=== PATIENT | male | born 1940 | race Caucasian/White ===

== ENCOUNTER 2016-10-01 09:30 | Observation (INO) | payer MEDICARE ==
[~2016-10-01 09:30] MED LIST: ALL220TA PO; GEMF600 PO; LEVA500T; LOVA1TAB47 PO; METH2.5 IM; OYST500T77 PO; PRIN10TA PO; VITA400C28 PO
[2016-10-01 09:32] VITALS: BP 157/72; PULSE 62; RESP 17; TEMP 97.9; O2SAT 96
[2016-10-01] MEDS ORDERED: SODIUM CHLORIDE 0.9% FLUSH 10 ML FLUSH IVF PRN (10:15)
[2016-10-01] MEDS ORDERED: ASPIRIN 325 MG TAB PO ONE (10:15)
--- NOTE | 2016-10-01 10:39 | RADRPT ---
EXAM DATE/TIME: 10/01/2016 10:16 [facility] COMPARISON: No previous studies available for comparison. INDICATIONS : Slurred speech. RADIATION DOSE: 56.35 CTDIvol (mGy) MEDICAL HISTORY : Cardiovascular disease. Hypertension. SURGICAL HISTORY : None. ENCOUNTER: Initial ACUITY: 3 days PAIN SCALE: 0/10 LOCATION: cranial TECHNIQUE: Multiple contiguous axial images were obtained of the head. Using automated exposure control and adj ustment of the mA and/or kV according to patient size, radiation dose was kept as low as reasonably a chievable to obtain optimal diagnostic quality images. FINDINGS: CEREBRUM: The ventricles are normal for age. No evidence of midline shift, mass lesion, hemorrhage or acute inf arction. No extra-axial fluid collections are seen. POSTERIOR FOSSA: The cerebellum and brainstem are intact. The 4th ventricle is midline. The cerebellopontine angle i s unremarkable. EXTRACRANIAL: The visualized portion of the orbits is intact. The right maxillary sinus is nearly completely opacif ied with only a small central area variation. SKULL: The calvaria is intact. No evidence of skull fracture. CONCLUSION: 1. No acute hemorrhage or mass effect. 2. Diffuse atrophic change. 3. Opacification of the right maxillary sinus a small area of aeration. Tahir Gunter MD on October 01, 2016 at 10:29 Board Certified Radiologist. This report was verified electronically.
[2016-10-01] MEDS ORDERED: LOVA40TA PO (10:42)
[2016-10-01] MEDS ORDERED: PRIN10TA PO (10:42)
[2016-10-01] MEDS ORDERED: GEMF600 PO (10:42)
[2016-10-01] MEDS ORDERED: VITATAB56 PO (10:42)
[2016-10-01] MEDS ORDERED: CALC500T42 PO (10:42)
--- NOTE | 2016-10-01 10:43 | RADRPT ---
EXAM DATE/TIME: 10/01/2016 10:01 [facility] COMPARISON: No previous studies available for comparison. INDICATIONS : Possible stroke MEDICAL HISTORY : Chronic obstructive pulmonary disease. SURGICAL HISTORY : None. ENCOUNTER: Initial ACUITY: 3 days PAIN SCORE: 0/10 LOCATION: Bilateral chest FINDINGS: 2 AP erect portable views of the chest were obtained and demonstrate no infiltrates or effusions. The heart size is at the upper limits of normal with no perihilar edema. The bony thorax is intact and t here are overlying electrocardiogram leads. CONCLUSION: No acute disease. Tahir Gunter MD on October 01, 2016 at 10:41 Board Certified Radiologist. This report was verified electronically.
[2016-10-01 10:44] LABS: BASOPHIL % 0.6 % (0.0-2.0); EOSINOPHIL # 0.3 TH/MM3 (0-0.4); EOSINOPHIL % 5.3 % (0.0-4.0); HEMATOCRIT 41.3 % (39.0-51.0); HEMO FLAGS DIFF FINAL; LYMPH % 12.7 % (9.0-44.0); LYMPHOCYTE # 0.7 TH/MM3 (1.0-4.8); MEAN CORPUSCULAR HGB CONC 34.8 % (32.0-36.0); MONO % 4.2 % (0.0-8.0); NEUT % 77.2 % (16.0-70.0); PLATELET COUNT 169 TH/MM3 (150-450); RED BLOOD COUNT 4.48 MIL/MM3 (4.50-5.90); WHITE BLOOD COUNT 5.2 TH/MM3 (4.0-11.0)
[2016-10-01 10:57] LABS: BLOOD, URINE NEG (NEG); CALCIUM OXALATE CRYSTALS,URINE RARE /hpf; GLUCOSE,URINE NEG (NEG); KETONE, URINE NEG (NEG); MUCUS URINE FEW /lpf (OCC); NITRITE,URINE NEG (NEG); PH, URINE 5.5 (5.0-8.5); URINE COLOR LIGHT-YELLOW (YELLW/STRAW)
[2016-10-01 11:00] LABS: ALKALINE PHOSPHATASE 81 U/L (45-117); TOTAL BILIRUBIN ADULT 0.5 MG/DL (0.2-1.0)
[2016-10-01 11:04] LABS: COMMENT (UR) CATH-CULT NOT IND; CULTURE IF INDICATED CATH CULTURE NOT IND
[2016-10-01 11:07] LABS: ALT (GPT) 32 U/L (12-78); ANION GAP 10 MEQ/L (5-15); AST (GOT) 27 U/L (15-37); BICARBONATE 21.7 MEQ/L (21.0-32.0); BLOOD UREA NITROGEN 20 MG/DL (7-18); CHLORIDE 106 MEQ/L (98-107); GLOMERULAR FILTRATION RATE 71 ML/MIN (>89); POTASSIUM 4.3 MEQ/L (3.5-5.1); SODIUM (NA) 138 MEQ/L (136-145)
--- NOTE | 2016-10-01 11:13 | PD ---
HPI Chief Complaint: Neuro Symptoms/ Deficits Time Seen by Provider: 09:53 Travel History International Travel<30 days: No Contact w/Intl Traveler<30days: No Traveled to known affect area: No History of Present Illness HPI This 76-year-old man who presents to the emergency department referred in by his primary care doctor for TIA symptoms. Patient has a history of COPD, rheumatoid arthritis, hypertension, hyperlipidemia, but no history of heart disease or cervical vascular disease. He states about 3 days ago he had 5 minutes worth of right sided weakness, expressive aphasia symptoms, and facial droop. The symptoms resolved spontaneously. 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 He went to an urgent care with [facility] today. They noted some persistent symptoms, spoke with his primary physician, was referred to the emergency department. He's had no recurrence of his symptoms. He said no previous similar symptoms. History Past Medical History Narrative Medical COPD RA, OA Hypertension on hyperlipidemia Tetanus Vaccination: Unknown Social History Alcohol Use: Yes (BEER OCCASSIONALLY) Tobacco Use: No Allergies-Medications (Allergen,Severity, Reaction): Coded Allergies: No Known Allergies (Verified , 10/01/16) Reported Meds & Prescriptions Reported Meds & Active Scripts Active Reported Lovastatin 40 Mg Tab 40 Mg PO DAILY Prinivil (Lisinopril) 10 Mg Tab 10 Mg PO DAILY Lopid (Gemfibrozil) 600 Mg Tab 600 Mg PO DAILY Take 30 minutes prior to breakfast and dinner Vitamin D-400 (Cholecalciferol) 400 Unit Tab 400 Units PO DAILY Calcium 500 Mg Tab 500 Mg PO DAILY Review of Systems Except as stated in HPI: all other systems reviewed are Neg Physical Exam Narrative GENERAL: Well-appearing 76-year-old man, no acute distress. SKIN: Focused skin assessment warm/dry. HEAD: Atraumatic. Normocephalic. EYES: Pupils equal and round. No scleral icterus. No injection or drainage. ENT: No nasal bleeding or discharge. Mucous membranes pink and moist. NECK: Trachea midline. No JVD. CARDIOVASCULAR: Regular rate and rhythm. No murmur appreciated. RESPIRATORY: No accessory muscle use. Clear to auscultation. Breath sounds equal bilaterally. GASTROINTESTINAL: Abdomen soft, non-tender, nondistended. Hepatic and splenic margins not palpable. MUSCULOSKELETAL: No obvious deformities. No clubbing. No cyanosis. No edema. NEUROLOGICAL: Awake and alert. Some faint right-sided weakness, Lyle subtle. He has a little bit of pronator drift. I don't see any obvious facial asymmetry. Otherwise unremarkable. PSYCHIATRIC: Appropriate mood and affect; insight and judgment normal. Data Data Last Documented VS Vital Signs Date Time Temp Pulse Resp B/P Pulse Ox O2 Delivery O2 Flow Rate FiO2 10/01/16 09:32 97.9 62 17 157/72 96 Orders Prothrombin Time / Inr (Pt) (10/01/16 10:04) Act Partial Throm Time (Ptt) (10/01/16 10:04) Complete Blood Count With Diff (10/01/16 10:04) Comprehensive Metabolic Panel (10/01/16 10:04) Troponin I (10/01/16 10:04) Urinalysis - C+S If Indicated (10/01/16 10:04) Ct Brain W/O Iv Contrast(Rout) (10/01/16 10:04) Chest, Single Ap (10/01/16 10:04) Ecg Monitoring (10/01/16 10:04) Iv Access Insert/Monitor (10/01/16 10:04) Oximetry (10/01/16 10:04) Aspirin (Aspirin) (10/01/16 10:15) Sodium Chloride 0.9% Flush (Ns Flush) (10/01/16 10:15) Admit Order (Ed Use Only) (10/01/16 ) Place In Observation (10/01/16 ) Code Status (10/01/16 11:11) Vital Signs (Adult) Q4H (10/01/16 11:11) Activity Oob With Assistance (10/01/16 11:11) Improvement Intern / Telemetry .CONTINUOUS (10/01/16 11:11) Diet Heart Healthy (10/01/16 Lunch) Sodium Chloride 0.9% Flush (Ns Flush) (10/01/16 11:15) Sodium Chloride 0.9% Flush (Ns Flush) (10/01/16 21:00) Acetaminophen (Tylenol) (10/01/16 11:15) Ondansetron Inj (Zofran Inj) (10/01/16 11:15) Magnesium Hydroxide Liq (Milk Of Magnesi (10/01/16 11:15) Temazepam (Restoril) (10/01/16 11:15) Basic Metabolic Panel (Bmp) (10/02/16 06:00) Complete Blood Count With Diff (10/02/16 06:00) Electrocardiogram (10/01/16 11:11) Pt Request For Service (10/01/16 11:11) Scd Bilateral/Knee High KARIN.BID (10/01/16 11:11) Naloxone Inj (Narcan Inj) (10/01/16 11:15) Labs Laboratory Tests Test 10/01/16 10/01/16 10:10 10:35 White Blood Count 5.2 TH/MM3 Red Blood Count 4.48 MIL/MM3 Hemoglobin 14.3 GM/DL Hematocrit 41.3 % Mean Corpuscular Volume 92.0 FL Mean Corpuscular Hemoglobin 32.0 PG Mean Corpuscular Hemoglobin 34.8 % Concent Red Cell Distribution Width 16.0 % Platelet Count 169 TH/MM3 Mean Platelet Volume 8.7 FL Neutrophils (%) (Auto) 77.2 % Lymphocytes (%) (Auto) 12.7 % Monocytes (%) (Auto) 4.2 % Eosinophils (%) (Auto) 5.3 % Basophils (%) (Auto) 0.6 % Neutrophils # (Auto) 4.0 TH/MM3 Lymphocytes # (Auto) 0.7 TH/MM3 Monocytes # (Auto) 0.2 TH/MM3 Eosinophils # (Auto) 0.3 TH/MM3 Basophils # (Auto) 0.0 TH/MM3 CBC Comment DIFF FINAL Differential Comment Prothrombin Time 11.0 SEC Prothromb Time International 1.0 RATIO Ratio Activated Partial 28.2 SEC Thromboplast Time Sodium Level 138 MEQ/L Potassium Level 4.3 MEQ/L Chloride Level 106 MEQ/L Carbon Dioxide Level 21.7 MEQ/L Anion Gap 10 MEQ/L Blood Urea Nitrogen 20 MG/DL Creatinine 1.02 MG/DL Estimat Glomerular Filtration 71 ML/MIN Rate Random Glucose 161 MG/DL Calcium Level 8.8 MG/DL Total Bilirubin 0.5 MG/DL Aspartate Amino Transf 27 U/L (AST/SGOT) Alanine Aminotransferase 32 U/L (ALT/SGPT) Alkaline Phosphatase 81 U/L Troponin I LESS THAN 0.02 NG/ML Total Protein 7.4 GM/DL Albumin 3.9 GM/DL Urine Color LIGHT-YELLOW Urine Turbidity CLEAR Urine pH 5.5 Urine Specific [place] 1.007 Urine Protein NEG mg/dL Urine Glucose (UA) NEG mg/dL Urine Ketones NEG mg/dL Urine Occult Blood NEG Urine Nitrite NEG Urine Bilirubin NEG Urine Urobilinogen LESS THAN 2.0 MG/DL Urine Leukocyte Esterase SMALL Urine RBC 1 /hpf Urine WBC 4 /hpf Urine Calcium Oxalate Crystals RARE /hpf Urine Mucus FEW /lpf Microscopic Urinalysis Comment CATH-CULT NOT IND MDM Medical Decision Making Medical Screen Exam Complete: Yes Emergency Medical Condition: Yes Interpretation(s) My review of EKG: Normal sinus rhythm at a rate of 73, leftward axis, normal intervals, no acute ischemia. LABS: CBC is unremarkable. CMP Troponins negative Coags UA Head CT: No acute hemorrhage or mass effect. Diffuse atrophic changes. Opacification of the right maxillary sinus and a small area of irritation. Chest x-ray: Negative. Differential Diagnosis CVA, TIA, seizure, head injury, other Narrative Course Medical decision making This a 76-year-old male presents emergency Department with right sided TIA symptoms. Fairly high risk based on time course, right sided hemiplegia, risk factors. He was seen by urgent care spoke with his primary physician. Álvaro of inpatient workup which is reasonable. Initial workup in ED is negative. I spoke with Dr. Gonzalez will admit the patient for further evaluation. Diagnosis Primary Impression: TIA (transient ischemic attack) Raoul Gupta MD Oct 01, 2016 11:12
[2016-10-01] MEDS ORDERED: TEMAZEPAM 15 MG CAP PO PRN (11:15)
[2016-10-01] MEDS ORDERED: ACETAMINOPHEN 325 MG TAB PO PRN (11:15)
[2016-10-01] MEDS ORDERED: MAGNESIUM HYDROXIDE SUSP 30 ML CUP PO PRN (11:15)
[2016-10-01] MEDS ORDERED: NALOXONE HCL 0.4 MG/ML AMP IV PRN (11:15)
[2016-10-01] MEDS ORDERED: SODIUM CHLORIDE 0.9% FLUSH 10 ML FLUSH IV FLUSH PRN (11:15)
[2016-10-01] MEDS ORDERED: ONDANSETRON HCL 4 MG/2 ML VIAL IVP PRN (11:15)
[2016-10-01 11:30] LABS: APTT (PATIENT) 28.2 SEC (24.3-30.1)
[2016-10-01 12:18] VITALS: BP 142/68
--- NOTE | 2016-10-01 12:56 | RADRPT ---
EXAM DATE/TIME: 10/01/2016 11:36 [facility] COMPARISON: No previous studies available for comparison. INDICATIONS : Right side weakness with expressive aphasia and facial droop. MEDICAL HISTORY : Chronic obstructive pulmonary disease. Hypertension. Rheumatoid arthritis. SURGICAL HISTORY : Bilateral knee replacement. ENCOUNTER: Initial ACUITY: 2 days PAIN SCORE: 10 LOCATION: Bilateral neck PEAK SYSTOLIC VELOCITIES (cm/sec): ICA/CCA RATIO: Right: 0.9 Left: 0.9 ICA: Right: 81.2 Left: 66.9 CCA: Right: 89.2 Left: 72.4 ECA: Right: 171.7 Left: 99.5 VERTEBRAL: Right: 43.9 antegrade Left: 40.9 antegrade Elevated flow velocities and ICA/CCA ratios have been found to correlate with increased degrees of vessel stenosis, calculated as percentage of diameter relative to a normal segment of distal ICA/CCA FINDINGS: Ultrasound of the carotid arteries was performed bilaterally using real-time Doppler and color Dopple r imaging. Examination of the right carotid artery demonstrates mild fibrous plaque within the bifurcation. No w aveform abnormalities are identified and no spectral broadening is seen. Examination of the left [place] artery demonstrates mild fibrous plaque within the bulb. No waveform abnormalities are identified and no spectral broadening is seen. There is antegrade flow in both vertebral arteries. CONCLUSION: No evidence of hemodynamically significant lesion. Alden Euceda MD on October 01, 2016 at 12:54 Board Certified Radiologist. This report was verified electronically.
--- NOTE | 2016-10-01 13:23 | EKG ---
Date Performed: 10/01/2016 Time Performed: 09:47:53 PTAGE: 76 years EKG: Sinus rhythm WITH SINUS ARRHYTHMIA NONSPECIFIC T-WAVE ABNORMALITY BORDERLINE ECG NO PREVIOUS TRACING DOCTOR: Bird Brumfield Interpretating Date/Time 10/01/2016 13:21:30
--- NOTE | 2016-10-01 14:26 | RADRPT ---
EXAM DATE/TIME: 10/01/2016 13:37 [facility] COMPARISON: CT BRAIN W/O CONTRAST, October 01, 2016, 10:16. INDICATIONS : Right sided weakness, expressive aphasia symptoms, and facial droop. MEDICAL HISTORY : Hypercholesterolemia. Chronic obstructive pulmonary disease. SURGICAL HISTORY : Bilateral knee replacement ENCOUNTER: Initial ACUITY: 3 day PAIN SCORE: 0/10 LOCATION: cranial TECHNIQUE: Multiplanar, multisequence MRI of the brain was performed without contrast. FINDINGS: There are 2 areas of abnormal diffusion in the left mid parietal lobe the larger one measures sl ightly over a centimeter in size characteristic of acute infarction without hemorrhage or mass effect . Slight periventricular white matter changes are seen nonspecific mostly consistent with chronic sma ll vessel ischemic changes. CONCLUSION: Two small areas of acute infarction in the left parietal lobe without hemorrhage or mass effect. Rhonda Pratt MD on October 01, 2016 at 14:22 Board Certified Radiologist. This report was verified electronically.
--- NOTE | 2016-10-01 14:27 | RADRPT ---
EXAM DATE/TIME: 10/01/2016 13:37 [facility] COMPARISON: MRI BRAIN W/O CONTRAST, October 01, 2016, 13:37. US CAROTID ARTERIES, October 01, 2016, 11:36. CT BRAIN W/O CONTRAST, October 01, 2016, 10:16. INDICATIONS : Right sided weakness, expressive aphasia symptoms, and facial droop. MEDICAL HISTORY : Hypercholesterolemia. Chronic obstructive pulmonary disease. SURGICAL HISTORY : Bilateral knee replacment, cataract ENCOUNTER: Initial ACUITY: 3 day PAIN SCORE: 0/10 LOCATION: cranial Please note a normal MRA of the brain does not entirely exclude the possibility of a small aneurysm, nor the possibility of distal intracranial vessel disease. TECHNIQUE: 3D time of flight MRA was performed. Source images, multiplanar STS MIP, and 3D volume MIP reconstru ctions were reviewed. FINDINGS: No significant vascular malformations, vessel truncation or aneurysmal dilatations are seen except fo r slight atherosclerotic changes involving multiple branches bilaterally mainly the MCAs. CONCLUSION: Slight atherosclerotic changes of distal branches bilaterally, otherwise unremarkable . Rhonda Pratt MD on October 01, 2016 at 14:24 Board Certified Radiologist. This report was verified electronically.
[2016-10-01] MEDS ORDERED: ASPIRIN EC 325 MG TABEC PO ONE (14:45)
--- NOTE | 2016-10-01 14:55 | HHI.HP ---
HPI Service [facility] Hospitalists Primary Care Physician Art Wong Admission Diagnosis CVA Chief Complaint: Right sided facial weakness Travel History International Travel<30 Days: No Contact w/Intl Traveler <30 Da: No Traveled to Known Affected Are: No History of Present Illness Mr. Maloney is a 76 y/o male with HTN, hyperlipidemia, COPD and RA who presented to the ED at [facility] on 10/01/16 from a [facility] Urgent Care for possible TIA symptoms. The pt reports that about 3 days ago he had 5 minutes worth of right sided weakness, expressive aphasia symptoms and facial droop. The symptoms resolved spontaneously. 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 He went to an urgent care with [facility] today and was noted to have some persistent right sided facial weakness and the case was discussed with the pts PCP, Dr. Wong, and he was referred to the emergency department. Head CT in the ED was negative for any acute hemorrhage or mass effect but noted diffuse atrophic change. Pt was admitted for further workup for his previous right sided weakness, facial droop and aphasia that occurred 3 days ago. Pt denies any headache, dizziness, chest pain, SOB, palpitations, abd pain, N/V. Past Family Social History Past Medical History HTN Hyperlipidemia CKD, stage 2 COPD RA GERD Diverticulosis Past Surgical History Bilateral knee replacements Cataract surgery Reported Medications Lovastatin 40 Mg Tab 40 Mg PO DAILY Prinivil (Lisinopril) 10 Mg Tab 10 Mg PO DAILY Lopid (Gemfibrozil) 600 Mg Tab 600 Mg PO DAILY Take 30 minutes prior to breakfast and dinner Vitamin D-400 (Cholecalciferol) 400 Unit Tab 400 Units PO DAILY Calcium 500 Mg Tab 500 Mg PO DAILY Allergies: Coded Allergies: No Known Allergies (Verified , 10/01/16) Family History Noncontributory Social History Denies any alcohol, tobacco or illicit drug use 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 SKIN: No rashes, ecchymoses or lesions. Cool and dry. HEENT: Atraumatic. Normocephalic. No temporal or scalp tenderness. No scleral icterus. Airway patent. NECK: Trachea midline, supple, nontender. CARDIO: Regular RESP: CTA bilaterally. No wheezes, rales, or rhonchi. ABD: +BS, soft, non-tender, nondistended. EXT: Extremities without clubbing, cyanosis, or edema. NEURO: Awake and alert. Motor and sensory grossly within normal limits. Normal speech. Laboratory Laboratory Tests Test 10/01/16 10/01/16 10:10 10:35 White Blood Count 5.2 Red Blood Count 4.48 Hemoglobin 14.3 Hematocrit 41.3 Mean Corpuscular Volume 92.0 Mean Corpuscular Hemoglobin 32.0 Mean Corpuscular Hemoglobin 34.8 Concent Red Cell Distribution Width 16.0 Platelet Count 169 Mean Platelet Volume 8.7 Neutrophils (%) (Auto) 77.2 Lymphocytes (%) (Auto) 12.7 Monocytes (%) (Auto) 4.2 Eosinophils (%) (Auto) 5.3 Basophils (%) (Auto) 0.6 Neutrophils # (Auto) 4.0 Lymphocytes # (Auto) 0.7 Monocytes # (Auto) 0.2 Eosinophils # (Auto) 0.3 Basophils # (Auto) 0.0 CBC Comment DIFF FINAL Differential Comment Prothrombin Time 11.0 Prothromb Time International 1.0 Ratio Activated Partial 28.2 Thromboplast Time Sodium Level 138 Potassium Level 4.3 Chloride Level 106 Carbon Dioxide Level 21.7 Anion Gap 10 Blood Urea Nitrogen 20 Creatinine 1.02 Estimat Glomerular Filtration 71 Rate Random Glucose 161 Calcium Level 8.8 Total Bilirubin 0.5 Aspartate Amino Transf 27 (AST/SGOT) Alanine Aminotransferase 32 (ALT/SGPT) Alkaline Phosphatase 81 Troponin I LESS THAN 0.02 Total Protein 7.4 Albumin 3.9 Urine Color LIGHT-YELLOW Urine Turbidity CLEAR Urine pH 5.5 Urine Specific [place] 1.007 Urine Protein NEG Urine Glucose (UA) NEG Urine Ketones NEG Urine Occult Blood NEG Urine Nitrite NEG Urine Bilirubin NEG Urine Urobilinogen LESS THAN 2.0 Urine Leukocyte Esterase SMALL Urine RBC 1 Urine WBC 4 Urine Calcium Oxalate Crystals RARE Urine Mucus FEW Microscopic Urinalysis Comment CATH-CULT NOT IND Result Diagram: 10/01/16 1010 10/01/16 1010 Imaging Last Impressions Head CT 10/01/16 1004 Signed Impressions: Service Date/Time: Saturday, October 01, 2016 10:16 - CONCLUSION: 1. No acute hemorrhage or mass effect. 2. Diffuse atrophic change. 3. Opacification of the right maxillary sinus a small area of aeration. Tahir Gunter MD Chest X-Ray 10/01/16 1004 Signed Impressions: Service Date/Time: Saturday, October 01, 2016 10:01 - CONCLUSION: No acute disease. Tahir Gunter MD Head Magnetic Resonance Angiography 10/01/16 0000 Signed Impressions: Service Date/Time: Saturday, October 01, 2016 13:37 - CONCLUSION: Slight atherosclerotic changes of distal branches bilaterally, otherwise unremarkable. Rhonda Pratt MD Carotid Artery Ultrasound 10/01/16 0000 Signed Impressions: Service Date/Time: Saturday, October 01, 2016 11:36 - CONCLUSION: No evidence of hemodynamically significant lesion. Alden Euceda MD Brain MRI 10/01/16 0000 Signed Impressions: Service Date/Time: Saturday, October 01, 2016 13:37 - CONCLUSION: Two small areas of acute infarction in the left parietal lobe without hemorrhage or mass effect. Rhonda rPatt MD Septic Shock Reassessment Heart: Regular rate and rhythm Lungs: Clear Skin: Warm Peripheral Pulses: Bounding Right Radial Bounding Left Radial Bounding Right Popliteal Bounding Left Popliteal Bounding Right Dorsalis Pedis Bounding Left Dorsalis Pedis Bounding Right Posterior Tibial Bounding Left Posterior Tibial Assessment and Plan Problem List: (1) CVA (cerebral vascular accident) Status: Acute Plan: - Pt admitted with previous symptoms of transient right sided weakness, facial droop and aphasia that occurred 3 days ago and resolved on its own. He was seen at [facility] Urgent Care today with these reported symptoms and he was sent to the ED for further workup. - CT Brain (10/01) --> No acute hemorrhage or mass effect. Diffuse atrophic change. - Brain MRI (10/01) --> Two small areas of acute infarction in the left parietal lobe without hemorrhage or mass effect. - MRA Brain (10/01) --> Slight atherosclerotic changes of distal branches bilaterally, otherwise unremarkable. - Carotid US (10/01) --> negative. - Pts BP meds were resumed - Holter Monitor - 2D echo - Check Lipid panel in AM - PT evaluation - Start ASA 325mg po daily - Supportive care - DVT prophylaxis (2) HTN (hypertension) Status: Chronic Plan: - Home meds resumed - Monitor (3) Hyperlipidemia Status: Chronic Plan: - Home meds resumed - Check lipid panel in AM (4) COPD (chronic obstructive pulmonary disease) Status: Chronic Plan: - [place] PRN Assessment and Plan Patient examined. Assessment and plan formulated with Maureen Pichardo PA-C. I agree with the above. Pt refuses further hospitalization MRI brain (10/01/16) --> CVA echocardiogram performed and results pending holter monitor applied. Pt may complete study at home and return device to [facility] still need to r/o occult Afib ASA 325mg PO daily obtain outpt fasing lipid panel. Maureen Pichardo Oct 01, 2016 14:55 Hayden Gonzalez DO Oct 01, 2016 16:40
[2016-10-01 15:22] VITALS: PULSE 56
--- NOTE | 2016-10-01 16:04 | EC ---
Study Study Date:10/01/2016 STUDY CONCLUSIONS SUMMARY - Left ventricle: The cavity size was normal. Wall thickness was increased in a pattern of mild LVH. There was mild focal basal hypertrophy of the septum. Systolic function was normal. The estimated ejection fraction was in the range of 55% to 60%. Wall motion was normal; there were no regional wall motion abnormalities. - Aortic valve: Mild regurgitation. - Mitral valve: Mild regurgitation. - Tricuspid valve: Mild regurgitation. - Pulmonary arteries: Systolic pressure was mildly increased. If LV function is below 40, please consider prescribing an ACEI or ARB or document rationale for non-use. PROCEDURE DATA STUDY STATUS: Elective. Procedure: Transthoracic echocardiography. Image quality was fair. Scanning was performed from the parasternal, apical, and subcostal acoustic windows. Study completion: The patient tolerated the procedure well. Transthoracic echocardiography. M-mode, complete 2D, complete spectral Doppler, and color Doppler. Patient status: Inpatient. CARDIAC ANATOMY LEFT VENTRICLE: The cavity size was normal. Wall thickness was increased in a pattern of mild LVH. There was mild focal basal hypertrophy of the septum. Systolic function was normal. The estimated ejection fraction was in the range of 55% to 60%. Wall motion was normal; there were no regional wall motion abnormalities. AORTIC VALVE: Trileaflet; normal thickness leaflets. Doppler: Transvalvular velocity was within the normal range. There was no stenosis. Mild regurgitation. AORTA: The aorta was mildly calcified. Aortic root: The aortic root was normal in size. MITRAL VALVE: Structurally normal valve. Doppler: Transvalvular velocity was within the normal range. There was no evidence for stenosis. Mild regurgitation. LEFT ATRIUM: The atrium was normal in size. RIGHT VENTRICLE: The cavity size was normal. Wall thickness was normal. PULMONIC VALVE: Doppler: Transvalvular velocity was within the normal range. There was no evidence for stenosis. No regurgitation. TRICUSPID VALVE: Structurally normal valve. Doppler: Transvalvular velocity was within the normal range. Mild regurgitation. PULMONARY ARTERY: The main pulmonary artery was normal-sized. Systolic pressure was mildly increased. RIGHT ATRIUM: The atrium was normal in size. PERICARDIUM: There was no pericardial effusion. SYSTEMIC VEINS: Inferior vena cava: The vessel was normal in size. Prepared and signed by Katerina Garcia [id number]
[2016-10-01] MEDS ORDERED: Aspirin Ec PO (16:38)
[2016-10-01] MEDS ORDERED: GEMFIBROZIL 600 MG TAB PO SCH (18:00)
[2016-10-01] MEDS ORDERED: PRAVASTATIN SOD 40 MG TAB PO SCH (18:00)
[2016-10-01] MEDS ORDERED: SODIUM CHLORIDE 0.9% FLUSH 10 ML FLUSH IV FLUSH SCH (21:00)
[2016-10-02] MEDS ORDERED: PRAVASTATIN SOD 40 MG TAB PO SCH (09:00)
[2016-10-02] MEDS ORDERED: CALCIUM CARBONATE 1.25 GM (CA 500 MG) TAB PO SCH (09:00)
[2016-10-02] MEDS ORDERED: ASPIRIN EC 325 MG TABEC PO SCH (09:00)
[2016-10-02] MEDS ORDERED: CHOLECALCIFEROL (VIT D3) 400 UNIT TAB PO SCH (09:00)
[2016-10-02] MEDS ORDERED: GEMFIBROZIL 600 MG TAB PO SCH (09:00)
[2016-10-02] MEDS ORDERED: LISINOPRIL 10 MG TAB PO SCH (09:00)
--- NOTE | 2016-10-03 15:06 | HM ---
Date Performed: 10/01/2016 Time Performed: 15:15:00 HOOKUP DATE: 10/01/16 03:15:00 PM Tue ANALYSIS START TIME: 10/01/2016 3:20:00 PM ANALYSIS END TIME: 10/02/2016 3:24:00 PM PATIENT AGE: 76 PATIENT HEIGHT PATIENT WEIGHT DRUG LIST PATIENT DIAGNOSIS: poss neuro TEST NARRATIVE: The patient's average heart rate was 71 BPM. No episodes of tachycardia wer e noted. Heart rates less than 50 BPM were noted 5% of the time. No pauses exceeding 2.0 seconds were noted. 10 ventricular ectopics, which represented < 1% of the total beat count, were noted. The highest ventricular ectopic frequency occurred from 05:00 PM to 06:00 PM Tue. During this time 3 VE(s) occurred. Ventricular ectopics were observed as 10 isolated beat(s) only. No couplets or r uns were noted. 24 supraventricular ectopics, which represented < 1% of the total beat count, wer e noted. The highest supraventricular ectopic frequency occurred from 04:00 PM to 05:00 PM Tue. Dur ing this time 3 SVE(s) occurred. No episodes of ST depression (defined as -1.0 mm or more) were n oted in channel 1. No episodes of ST depression (defined as -1.0 mm or more) were noted in channel 2 . No episodes of ST depression (defined as -1.0 mm or more) were noted in channel 3. POOR QUALITY TR ACING, NO DIARY MAINTAINED TEST INTERPRETATION: No diary was maintained. No significant pauses were present. The underlyi ng rhythm is Sinus rhythm with average rate 71 beats per minute and range of 44-119 beats per minute. Rare premature atrial c ontractions are seen with extremely rare atrial couplets or triplets. No significant ventricular ect opy was seen except for very rare isolated ectopic beats. Signed by : Hill Snyder
== END 2016-10-01 17:55 | disposition home or self-care (01) ==
LOC: NEPE 09:30 → NEDA 11:14 → NEPHCDU 12:37
PROVIDERS: ADMIT Hospitalist; ATTEND Hospitalist
DX: I63.9 Cerebral infarction, unspecified (principal); I12.9 Hypertensive chronic kidney disease with stage 1 through stage 4 chronic kidney disease, or unspecified chronic kidney disease; N18.2 Chronic kidney disease, stage 2 (mild); I49.9 Cardiac arrhythmia, unspecified; J44.9 Chronic obstructive pulmonary disease, unspecified; E78.5 Hyperlipidemia, unspecified; M06.9 Rheumatoid arthritis, unspecified; K21.9 Gastro-esophageal reflux disease without esophagitis; Z96.653 Presence of artificial knee joint, bilateral
CPT/HCPCS: 70450; 70544; 70551; 71010; 80053; 81001; 84484; 85025; 85610; 85730; 93005; 93225; 93226; 93306; 93880; 99285; G0378

== ENCOUNTER 2017-09-17 18:48 | Emergency (ER) | payer MEDICARE ==
[~2017-09-17] VITALS: Ht 175.3 cm; Wt 98.0 kg
[~2017-09-17 18:48] MED LIST changes: -ALL220TA PO; +Aspirin Ec PO; +CALC500T42 PO; -LEVA500T; -LOVA1TAB47 PO; +LOVA40TA PO; -METH2.5 IM; -OYST500T77 PO; -VITA400C28 PO; +VITATAB56 PO
[2017-09-17 19:23] VITALS: BP 146/65; PULSE 66; RESP 18; TEMP 98.1; O2SAT 98
[2017-09-17] MEDS ORDERED: CALC500T37 PO (19:44)
[2017-09-17] MEDS ORDERED: METH25IN13 IM (19:44)
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
[2017-09-17] MEDS ORDERED: LIDOCAINE HCL 1% 20 ML VIAL ONE (19:59)
[2017-09-17] MEDS ORDERED: LIDOCAINE 1%/EPINEPHrine 1:100,000 SOLN 20 ML VIAL INFIL ONE (20:00)
== END 2017-09-17 20:30 | disposition home or self-care (01) ==
LOC: NEPD 18:48
DX: S01.01XA Laceration without foreign body of scalp, initial encounter (principal); M06.9 Rheumatoid arthritis, unspecified; J44.9 Chronic obstructive pulmonary disease, unspecified; I10 Essential (primary) hypertension; E78.00 Pure hypercholesterolemia, unspecified; E11.9 Type 2 diabetes mellitus without complications; W22.8XXA Striking against or struck by other objects, initial encounter; Z79.82 Long term (current) use of aspirin; Z79.899 Other long term (current) drug therapy
CPT/HCPCS: 12001